=== PATIENT | male | born 1985 | race African-American/Black ===

== ENCOUNTER 2025-05-26 18:04 | Emergency (ER) | payer BC ==
[~2025-05-26] VITALS: Ht 157.5 cm; Wt 74.0 kg
[2025-05-26 18:18] VITALS: TEMP 36.9; O2SAT 100
[2025-05-26] MEDS ORDERED: SULF1TAB48 MT (18:47)
[2025-05-26] MEDS ORDERED: BO1 TP (18:48)
[2025-05-26 19:16] VITALS: BP 149/95; PULSE 69; RESP 12; O2SAT 97
== END 2025-05-26 19:17 | disposition home or self-care (01) ==
LOC: ER 18:04
DX: S41.111D Laceration without foreign body of right upper arm, subsequent encounter (principal); S81.812D Laceration without foreign body, left lower leg, subsequent encounter; Z79.899 Other long term (current) drug therapy; X58.XXXD Exposure to other specified factors, subsequent encounter
CPT/HCPCS: 99283

== ENCOUNTER 2025-05-31 20:56 | Emergency (ER) | payer BC ==
[~2025-05-31 20:56] MED LIST: BO1 TP; SULF1TAB48 MT
[2025-05-31] MEDS ORDERED: SULF1TAB47 MT (21:48)
[2025-05-31] MEDS ORDERED: CEPH500C2 MT (21:48)
[2025-05-31 21:52] VITALS: BP 146/97; PULSE 66; RESP 16; TEMP 36.9; O2SAT 97
== END 2025-05-31 22:10 | disposition home or self-care (01) ==
LOC: ER 21:04
DX: L03.114 Cellulitis of left upper limb (principal); Z79.899 Other long term (current) drug therapy
CPT/HCPCS: 99283